=== PATIENT | male | born 1990 | race Two or more races ===

== ENCOUNTER → 2025-08-05 | Outpatient (CLI) | payer MEDICAID, SELFPAY ==
--- NOTE | 2025-08-05 08:30 | XR_ITS ---
Examination: CT abdomen without intravenous contrast. Coronal 2-D reconstructions. Sagittal 2-D reconstructions. Date and time of exam: August 05, 2025, 0846 hours INDICATIONS: Palpable lump swelling and abdominal pain 1 year CTDI: vol (mGy): 8.44 DLP: (mGycm): 343 Technique: Axial images of the abdomen have been obtained, 3 mm slice thickness, 60 cc [id number] 2-D sagittal coronal reconstructions Low dose protocols were performed. One or more of the following dose reduction techniques were used; automated exposure control, adjustment of the mA and/or KV according to patient size, use of iterative reconstruction technique. Findings: No visualized liver or splenic lesion Contracted gallbladder No pancreatic or adrenal mass No renal or ureteral calculi Normal appendix 8 mm fat-containing umbilical hernia No bowel obstruction No diverticulitis No anterior abdominal wall mass IMPRESSION: Contracted gallbladder No renal or ureteral calculi, no hydronephrosis 8 mm fat-containing umbilical hernia Normal appendix Recommend ultrasound soft tissue follow-up of any palpable left-sided abdominal mass
== END | disposition home or self-care (01) ==
LOC: CCTX 08:29
PROVIDERS: Referring Provider Physician Assistant; Visit Provider Physician Assistant
DX: K82.0 Obstruction of gallbladder (principal); K42.9 Umbilical hernia without obstruction or gangrene
CPT/HCPCS: 74150